=== PATIENT | male | born 1960 | race Caucasian/White ===

== ENCOUNTER 2018-11-20 12:10 | Observation (INO) | payer OTHER ==
[~2018-11-20] VITALS: Ht 180.3 cm; Wt 74.4 kg
[2018-11-20] MEDS ORDERED: METO100T5 PO (12:29)
[2018-11-20] MEDS ORDERED: ASPI-225 PO (12:29)
[2018-11-20] MEDS ORDERED: CLOP75TA2 PO (12:29)
[2018-11-20] MEDS ORDERED: WARF-22 PO (12:29)
[2018-11-20] MEDS ORDERED: RANI150T PO (12:29)
[2018-11-20 12:59] LABS: BASO # 0.2 10^3/uL (0.0-0.2); BASO % 1.1 % (0.0-1.0); EOS # 0.5 10^3/uL (0.0-0.50); EOS % 3.7 % (0.0-3.0); HEMATOCRIT 26.1 % (42.0-52.0); HEMOGLOBIN 7.2 g/dl (13.5-17.5); LYMPH # 1.6 10^3/uL (1.5-4.5); LYMPH % 12.2 % (24.0-44.0); MEAN CORPUSCULAR HEMOGLOBIN 18.8 pg (27.0-33.0); MEAN CORPUSCULAR HGB CONC 27.6 g/dl (32.0-36.5); MONO % 7.3 % (0.0-5.0); NEUTROPHILS # 9.9 10^3/uL (1.8-7.7); NEUTROPHILS % 75.2 % (36.0-66.0); PLATELET COUNT, AUTOMATED 524 10^3/uL (150-450); RED BLOOD COUNT 3.84 10^6/uL (4.30-6.10); WHITE BLOOD COUNT 13.1 10^3/uL (4.0-10.0)
[2018-11-20 13:16] LABS: INR 1.94; PARTIAL THROMBOPLASTIN TIME 35.8 SECONDS (25.4-37.6); PROTHROMBIN TIME 22.5 SECONDS (12.1-14.4)
[2018-11-20 13:25] LABS: BLOOD UREA NITROGEN 9 MG/DL (7-18); CALCIUM LEVEL 8.4 MG/DL (8.5-10.1); CARBON DIOXIDE LEVEL 24 MEQ/L (21-32); CHLORIDE LEVEL 100 MEQ/L (98-107); GLOMERULAR FILTRATION RATE > 60.0 (>56); GLUCOSE, FASTING 79 MG/DL (70-100); POTASSIUM SERUM 4.2 MEQ/L (3.5-5.1); SODIUM LEVEL 133 MEQ/L (136-145)
[2018-11-20 13:57] LABS: FERRITIN 6 NG/ML (26-388); IRON (FE) 13 UG/DL (65-175); PERCENT SATURATION 2.2 % (19.7-50.0); TOTAL IRON BINDING CAPACITY 603 UG/DL (250-450)
--- NOTE | 2018-11-20 14:02 | REP ---
Chest two views HISTORY: Dyspnea Comparison: None The lungs are clear. The heart is normal in size. The pulmonary vasculature is normal in appearance. The bony structure is intact. IMPRESSION: No acute disease. Electronically Signed by Erwin Gold MD 11/20/2018 01:53 P
[2018-11-20] MEDS ORDERED: WARFARIN SOD 5 MG TAB PO ONE (17:00)
--- NOTE | 2018-11-20 17:25 | HPE ---
DATE OF ADMISSION: 11/20/2018 This is a 58-year-old male with a past medical history of peripheral vascular disease, status post bypass surgery in [place] - the exact procedure is unknown at this time, still awaiting old charts, also, a history of hypertension. He presents to the emergency room due to abnormal labs found in urgent care. The patient just came back to [place] and has not had a primary medical doctor yet, although he has an appointment in December to establish a new primary. However, he went to urgent care to get refills of his old prescriptions, and this is where they found out that he had a hemoglobin of 7.2 and a hematocrit of 25, so they brought him to the emergency room (ER) for evaluation. In the ER, the patient only admits to having vertigo, though, that is chronic in nature. No extreme lethargy. No unintentional weight loss. No chest pain or shortness of breath or palpitations. One unit of blood has been given in the ER, and the patient will be admitted for further management. PAST MEDICAL HISTORY: Peripheral vascular disease, status post bypass surgery of which the exact surgery is unknown. We are still awaiting charts from his primary in [place]. History of hypertension. Chronic active tobacco abuser. ALLERGIES: He has drug allergies to ANGIOTENSIN-CONVERTING ENZYME (DYLAN) INHIBITORS and CODEINE. FAMILY HISTORY: Negative for early coronary disease. SOCIAL HISTORY: The patient denies alcohol or illicit drug use, but he does have a 30 pack-year history. He, at this time, only smokes approximately 4-5 cigarettes a week. MEDICATIONS: He takes at home are as follows: - aspirin 81 mg orally daily - Plavix 75 mg orally daily - metoprolol 100 mg orally twice daily - ranitidine 150 mg orally twice daily - warfarin 10 mg orally at bedtime REVIEW OF SYSTEMS: Negative all ten major systems except what is mentioned in the history of the present illness. Vital Signs: Blood pressure is 150/71, heart rate is 60 and regular, respiratory rate 18, temperature 97.6, oxygen saturation 98% on room air. Head is atraumatic, normocephalic. Neck supple. No jugular venous distention (JVD). Lungs are clear to auscultation. S1, S2 audible, No murmurs appreciated. Abdomen: Soft, positive bowel sounds. No pedal edema. Skin: Intact. Neurologic Examination: Patient awake, alert, oriented times three. LABORATORY: Sodium 133, potassium 4.2, chloride 100, CO2 24, BUN 9, creatinine 0.9, glucose 79, calcium 8.4, transferrin saturation is 2%, ferritin is 6. INR is 1.94. IMPRESSION: Subacute anemia. PLAN: The patient is to be admitted to the medical-surgical floor. At this time, will give him only a unit of packed red blood cells (PRBC). Of course, he has lost 5 grams in his hemoglobin in the last 6 months. He is guaiac negative. However, he has never had a colonoscopy. At this time, we will just transfuse him a unit and follow post-transfusion CBC. If everything is stable, will just discharge him and have him followup with gastroenterology as an outpatient for elective colonoscopy to further identify why this patient is iron deficient. In the meantime, I will give him iron supplementation and unfortunately until we find out exactly what the surgical procedure was, he will continue anticoagulation at this time. Will continue following his care on the medical-surgical floor.
[2018-11-20 18:15] VITALS: BP 131/62
[2018-11-20] MEDS: FERROUS SULFATE 325MG TAB PO SCH ×2 (18:56→21:52)
[2018-11-20] MEDS: METOPROLOL TARTRATE 100 MG TAB PO SCH (21:52)
[2018-11-20] MEDS: FAMOTIDINE 20 MG TAB PO SCH (21:53)
[2018-11-20 22:00] VITALS: BP 118/58
[2018-11-21 06:00] VITALS: BP 116/60
[2018-11-21 08:16] LABS: HEMATOCRIT 28.1 % (42.0-52.0); HEMOGLOBIN 8.2 g/dl (13.5-17.5); MEAN CORPUSCULAR HEMOGLOBIN 19.7 pg (27.0-33.0); MEAN CORPUSCULAR HGB CONC 29.2 g/dl (32.0-36.5); MEAN CORPUSCULAR VOLUME 67.5 fl (80.0-96.0); PLATELET COUNT, AUTOMATED 501 10^3/uL (150-450); RED BLOOD COUNT 4.16 10^6/uL (4.30-6.10); WHITE BLOOD COUNT 5.8 10^3/uL (4.0-10.0)
[2018-11-21 08:45] LABS: ALBUMIN 3.5 GM/DL (3.2-5.2); ALT/SGPT 43 U/L (12-78); BILIRUBIN,DIRECT 0.1 MG/DL (0.0-0.2); BILIRUBIN,TOTAL 0.3 MG/DL (0.2-1.0); BLOOD UREA NITROGEN 9 MG/DL (7-18); CALCIUM LEVEL 7.9 MG/DL (8.5-10.1); CARBON DIOXIDE LEVEL 24 MEQ/L (21-32); CHLORIDE LEVEL 105 MEQ/L (98-107); CREATININE FOR GFR 0.81 MG/DL (0.70-1.30); GLOMERULAR FILTRATION RATE > 60.0 (>56); GLUCOSE, FASTING 90 MG/DL (70-100); LDH LACTATE DEHYDROGENASE 179 U/L (87-241); MAGNESIUM LEVEL 1.9 MG/DL (1.8-2.4); POTASSIUM SERUM 4.1 MEQ/L (3.5-5.1); SODIUM LEVEL 136 MEQ/L (136-145); TOTAL PROTEIN 7.7 GM/DL (6.4-8.2)
[2018-11-21] MEDS ORDERED: ASPIRIN 81 MG ENTERIC TAB PO SCH (09:00)
[2018-11-21] MEDS ORDERED: CLOPIDOGREL 75 MG TAB PO SCH (09:00)
[2018-11-21] MEDS: FERROUS SULFATE 325MG TAB PO SCH (09:33)
[2018-11-21] MEDS: FAMOTIDINE 20 MG TAB PO SCH (09:33)
[2018-11-21 09:34] VITALS: BP 155/75
[2018-11-21] MEDS: METOPROLOL TARTRATE 100 MG TAB PO SCH (09:34)
[2018-11-21] MEDS ORDERED: WARFARIN SOD 5 MG TAB PO SCH (17:00)
--- NOTE | 2018-11-21 19:23 | ECGEPIP ---
Stationary ECG Study [facility] - ED Test Date: 2018-11-20 Pat Name: ROMAN ANAYA Department: Room: - Gender: M Management Coordinator: : 1960 Requested By: LAMBERTO Craven Order Number: [id number] Reading MD: Mildred Hendrickson Measurements Intervals [place] Rate: 57 P: 44 IA: 136 QRS: 49 QRSD: 82 T: 45 QT: 426 QTc: 418 Interpretive Statements SINUS BRADYCARDIA NSTTW ABNORMALITY NO PRIOR FOR COMPARISON Electronically Signed On 11-21-2018 19:23:32 EST by Mildred Hendrickson
--- NOTE | 2018-11-21 22:43 | DS.PDOC ---
Discharge Summary General Date of Admission Nov 20, 2018 at 15:52 Date of Discharge left ama 11/21/18 Primary Care Physician: MILLIE EVANS DO Attending Physician: FRANK JAVIER DO Specialist/Consultants Involve: Kenrick Rogel Discharge Summary PROCEDURES PERFORMED DURING STAY: 1U PRBC transfusion ADMITTING DIAGNOSES: 1. acute symptomatic anemia DISCHARGE DIAGNOSES: 1. severe iron deficiency anemia 2. thrombocytosis 3. peripheral vascular disease, s/p bypass & stents, chronically on Coumadin, ASA, and Plavix 4. HTN 5. Chronic active tobacco use COMPLICATIONS/CHIEF COMPLAINT: Acute Anemia. HISTORY OF PRESENT ILLNESS: 58 yo M presented to ER after he was found to have low H&H at urgent care. He recently relocated to [place] from [place], and has not yet established with physician locally. He states he routinely has bloodwork done back in [place] due to his hx of PVD stents in lower legs, and went to urgent care to continue routine bloodwork. In our ER, he was found to have Hgb 7.2. Per reports, he was guaiac-negative in ER. HOSPITAL COURSE: Pt was transfused 1U PRBC and admitted. His Hgb next am mirtha to 8.2. He felt slightly improved in his lightheadedness. He was found to have elevated platelet in 500 range. Peripheral smear was sent, and LDH was WNL. Anemia workup revealed severe iron deficiency at level of 13, and he was started on po iron supplement as well. He was continued on his Coumadin and ASA/Plavix with goal to monitor H&H after he was transfused. He was adamant about leaving AMA, despite being educated about harms, including continuing bleeding, continuing anemia, arrythmia, stroke, and . He left A, and at this time, folate and B12 levels are pending, as well as peripheral smear. DISCHARGE MEDICATIONS: Please see below. ALLERGIES: Please see below. PHYSICAL EXAMINATION ON DISCHARGE: VITAL SIGNS: Please see below. GENERAL: NAD, resting comfortably, A&Ox3 HEENT: NC/AT, EOMI, anicteric sclera, supple. Pale conjunctiva CARDIAC: RRR, normal S1S2, no murmurs LUNGS: CTA B/L. No w/r/r EXTREMITIES: 2+ radial pulses bilaterally. No c/c/e ABDOMEN: soft, NT, +BS LABORATORY DATA: Please see below. IMAGIN11/20/18 CXR: no acute disease PROGNOSIS: fair ACTIVITY: [As tolerated]. DISPOSITION: 07 Against Medical Advice. DISCHARGE CONDITION: [Stable]. TIME SPENT ON DISCHARGE: Greater than 30 minutes. Vital Signs/I&Os Vital Signs Date Time Temp Pulse Resp B/P (MAP) Pulse Ox O2 Delivery O2 Flow Rate FiO2 11/21/18 09:34 68 155/75 11/21/18 06:00 98.3 17 96 11/20/18 12:11 Room Air I&O- Last 24 Hours up to 6 AM 11/21/18 06:00 Intake Total 500 ml Output Total 850 ml Balance -350 ml Laboratory Data Labs 24H Laboratory Tests 2 11/21/18 07:51: Differential Slide Review Report, Peripheral Blood Smear Path Consult PERIPHERAL SMEAR 11/21/18 07:54: Nucleated Red Blood Cells % (auto) 0.0, Anion Gap 7L, Glomerular Filtration Rate > 60.0, Calcium Level 7.9L, Magnesium Level 1.9, Aspartate Amino Transf (AST/SGOT) 34, Alanine Aminotransferase (ALT/SGPT) 43, Lactate Dehydrogenase 179, Alkaline Phosphatase 79, Total Bilirubin 0.3, Direct Bilirubin 0.1, Total Protein 7.7, Albumin 3.5, Albumin/Globulin Ratio 0.83L CBC/BMP Laboratory Tests 11/21/18 07:54 Red Blood Count 4.16 L, Mean Corpuscular Volume 67.5 L, Mean Corpuscular Hemoglobin 19.7 L, Mean Corpuscular Hemoglobin Concent 29.2 L, Red Cell Distribution Width 22.5 H Discharge Medications Scheduled Aspirin (Aspirin Low Dose) 81 Mg Tab, 81 MG PO DAILY, (Reported) Clopidogrel Bisulfate (Clopidogrel) 75 Mg Tab, 75 MG PO DAILY, (Reported) Metoprolol Tartrate (Metoprolol Tartrate) 100 Mg Tab, 100 MG PO BID, (Reported) Ranitidine HCl (Ranitidine HCl) 150 Mg Tab, 1 TAB PO BID, (Reported) Warfarin Sod (Warfarin Sodium) 10 Mg Tab, 10 MG PO QHS, (Reported) Allergies Coded Allergies: DYLAN Inhibitors (Verified Allergy, Unknown, 11/20/18) swelling Codeine (Verified Adverse Reaction, Unknown, 11/20/18) nv GME ATTESTATION GME ATTESTATION My faculty preceptor for this patient encounter was physically present during the encounter and was fully available. All aspects of the patient interview, examination, medical decision making process, and medical care plan development were reviewed and approved by the faculty preceptor. The faculty preceptor is aware and concurs with the plan as stated in the body of this note and will atte st to such by his/her cosignature. OLIVIA COLBERT DO Nov 21, 2018 22:42
[2018-11-23 09:15] LABS: VITAMIN B12 LEVEL 356 PG/ML (247-911)
[2018-11-23 09:16] LABS: FOLATE 17.1 NG/ML (>5.4)
== END 2018-11-21 12:15 | disposition left against medical advice (07) ==
LOC: M ED 12:10 → M ED INP 15:52 → M MSPAV 18:14
PROVIDERS: ADMIT Internal Medicine; ATTEND Internal Medicine
DX: D50.9 Iron deficiency anemia, unspecified (principal); Z53.20 Procedure and treatment not carried out because of patient's decision for unspecified reasons; D47.3 Essential (hemorrhagic) thrombocythemia; I10 Essential (primary) hypertension; I73.9 Peripheral vascular disease, unspecified; Z95.1 Presence of aortocoronary bypass graft; Z79.82 Long term (current) use of aspirin; Z79.01 Long term (current) use of anticoagulants; Z79.899 Other long term (current) drug therapy; Z88.8 Allergy status to other drugs, medicaments and biological substances; F17.210 Nicotine dependence, cigarettes, uncomplicated
CPT/HCPCS: 36415; 36430; 71046; 80048; 80076; 82607; 82728; 82746; 83615; 83735; 84466; 85025; 85027; 85610; 85730; 86850; 86900; 86901; 86920; 93005; 99285; P9016

== ENCOUNTER → 2018-12-17 | Outpatient (REF) | payer OTHER, MEDICAID ==
[~2018-12-17] MED LIST: ASPI-225 PO; CLOP75TA2 PO; METO100T5 PO; RANI150T PO; WARF-22 PO
[2018-12-17 16:13] LABS: HEMATOCRIT 28.5 % (42.0-52.0); HEMOGLOBIN 8.1 g/dl (13.5-17.5); MEAN CORPUSCULAR HEMOGLOBIN 24.9 pg (27.0-33.0); MEAN CORPUSCULAR HGB CONC 28.4 g/dl (32.0-36.5); MEAN CORPUSCULAR VOLUME 87.7 fl (80.0-96.0); PLATELET COUNT, AUTOMATED 457 10^3/uL (150-450); RED BLOOD COUNT 3.25 10^6/uL (4.30-6.10); WHITE BLOOD COUNT 11.9 10^3/uL (4.0-10.0)
[2018-12-17 16:31] LABS: ALBUMIN 3.8 GM/DL (3.2-5.2); ALT/SGPT 71 U/L (12-78); BILIRUBIN,TOTAL 0.3 MG/DL (0.2-1.0); BLOOD UREA NITROGEN 11 MG/DL (7-18); CALCIUM LEVEL 8.2 MG/DL (8.5-10.1); CARBON DIOXIDE LEVEL 27 MEQ/L (21-32); CHLORIDE LEVEL 107 MEQ/L (98-107); CHOLESTEROL LEVEL 151 MG/DL (< 200); CHOLESTEROL LEVEL 151 MG/DL (<200); CREATININE FOR GFR 0.92 MG/DL (0.70-1.30); GLOMERULAR FILTRATION RATE > 60.0 (>56); GLUCOSE, FASTING 85 MG/DL (70-100); HDL CHOLESTEROL 51 MG/DL (> 40); HDL CHOLESTEROL 51 MG/DL (>40); LDL CHOLESTEROL 87 MG/DL (<100); POTASSIUM SERUM 4.6 MEQ/L (3.5-5.1); SODIUM LEVEL 139 MEQ/L (136-145); TOTAL PROTEIN 7.8 GM/DL (6.4-8.2); TRIGLYCERIDES LEVEL 64 MG/DL (<150)
[2018-12-18 12:34] LABS: HEPATITIS C VIRUS ABY INDEX > 11.0 INDEX (<0.8)
== END ==
LOC: M SFHCPLAZ 14:12
DX: Z00.00 Encounter for general adult medical examination without abnormal findings (principal); E78.00 Pure hypercholesterolemia, unspecified; B18.2 Chronic viral hepatitis C; I99.9 Unspecified disorder of circulatory system

== ENCOUNTER → 2019-01-08 | Outpatient (CLI) | payer OTHER ==
--- NOTE | 2019-01-08 10:10 | REP ---
RIGHT UPPER QUADRANT ULTRASOUND: Real-time sonographic evaluation of the right upper quadrant performed. The gallbladder demonstrates on evidence of intraluminal sludge or calculi, wall thickening or pericholecystic fluid. There is no intrahepatic biliary dilatation, common bile duct measuring 4 mm. The liver and pancreas demonstrate homogeneous echotexture with no gross mass, pancreas is not optimally seen due to overlying bowel gas. Right kidney demonstrates no hydronephrosis with normal size 11.2 cm in length. IMPRESSION: Essentially negative right upper quadrant ultrasound. Electronically Signed by Mo Porter MD 01/08/2019 04:14 P
== END ==
LOC: M RAD 07:43
PROVIDERS: ATTEND Internal Medicine
DX: R76.8 Other specified abnormal immunological findings in serum (principal)

== ENCOUNTER → 2019-01-11 | Outpatient (CLI) | payer OTHER ==
[2019-01-12 09:40] LABS: HEPATITIS B SURFACE ANTIBODY NEGATIVE (POSITIVE); HEPATITIS B SURFACE ANTIGEN NEGATIVE (NEGATIVE); HIV 1&2 SCREEN CENTAUR NEGATIVE (NEGATIVE)
[2019-01-14 08:06] LABS: HEPATITIS A IgG TOTAL Negative (Negative)
[2019-01-19 00:06] LABS: HEPATITIS C QUANTITATION 605870 IU/mL (.); HEPATITIS C VIRUS GENOTYPE 2b (.)
== END ==
LOC: M LAB 14:38
PROVIDERS: ATTEND Internal Medicine
DX: R76.8 Other specified abnormal immunological findings in serum (principal)

== ENCOUNTER 2019-02-26 10:47 | Day surgery (SDC) | payer OTHER ==
[~2019-02-26] VITALS: Ht 182.9 cm; Wt 72.0 kg
[~2019-02-26 10:47] MED LIST changes: +ELIQ5TAB PO; +FERR325T3 PO; +METO50TA7 PO; +NS 1,000 ML IV ONE
[2019-02-26] MEDS ORDERED: PROPOFOL 500 MG/50 ML VIAL As Ordered ONE ×2 (12:26→12:39)
[2019-02-26] MEDS ORDERED: LIDOCAINE 2% INJ 100 MG/5 ML SDV (FOR ANES.) As Ordered ONE (12:26)
[2019-02-26] MEDS ORDERED: fentaNYL 100 MCG/2 ML INJECTION (J3010) As Ordered ONE (12:39)
--- NOTE | 2019-02-26 12:47 | ROOR ---
Patient Name: Dio Butler Procedure Date: 02/26/2019 12:15 PM Date of : 1960 Age: 58 Room: [facility] Gender: Male Note Status: Finalized Procedure: Upper GI endoscopy Indications: Iron deficiency anemia Providers: London RAMOS MD Referring MD: KRISTINA MENA Gregory [facility] Leni Requesting Provider: Medicines: Monitored Anesthesia Care Complications: No immediate complications. Procedure: Pre-Anesthesia Assessment: - The heart rate, respiratory rate, oxygen saturations, blood pressure, adequacy of pulmonary ventilation, and response to care were monitored throughout the procedure. The Endoscope was introduced through the mouth, and advanced to the second part of duodenum. The upper GI endoscopy was accomplished without difficulty. The patient tolerated the procedure well. Findings: Moderately severe esophagitis with no bleeding was found in the lower third of the esophagus. Biopsies were taken with a cold forceps for histology. Mild inflammation was found in the gastric antrum. Biopsies were taken with a cold forceps for histology. A single 2 mm angioectasia without bleeding was found in the second portion of the duodenum. For hemostasis, one hemostatic clip was successfully placed (MR conditional). The exam was otherwise without abnormality. Impression: - Moderately severe reflux esophagitis. Biopsied. - Mild gastritis. Biopsied. - A single non-bleeding angioectasia (of dubious significance) in the duodenum. Clip (MR conditional) was placed. - The examination was otherwise normal. Recommendation: - Use Prilosec (omeprazole) 40 mg PO daily. - Discontinue Zantac (ranitidine). - (the script was sent to your pharmacy on file) - Return to referring physician. London Ramos MD London RAMOS MD 02/26/2019 12:46:56 PM Electronically signed by London RAMOS MD Number of Addenda: 0 Note Initiated On: 02/26/2019 12:15 PM Estimated Blood Loss: Estimated blood loss: none.
[2019-02-26] MEDS ORDERED: GLUCAGON FOR INJ 1 MG VIAL (J1610) As Ordered ONE (13:11)
--- NOTE | 2019-02-26 13:20 | ROOR ---
Patient Name: Dio Butler Procedure Date: 02/26/2019 12:17 PM Date of : 1960 Age: 58 Room: [facility] Gender: Male Note Status: Finalized Procedure: Colonoscopy Indications: Iron deficiency anemia Providers: London RAMOS MD Referring MD: KRISTINA MENA Gregory [facility] Leni Requesting Provider: Medicines: Monitored Anesthesia Care Complications: No immediate complications. Procedure: Pre-Anesthesia Assessment: - The heart rate, respiratory rate, oxygen saturations, blood pressure, adequacy of pulmonary ventilation, and response to care were monitored throughout the procedure. The Colonoscope was introduced through the anus and advanced to the cecum, identified by appendiceal orifice and ileocecal valve. The colonoscopy was performed without difficulty. The patient tolerated the procedure well. The quality of the bowel preparation was good. Findings: The perianal and digital rectal examinations were normal. Two sessile polyps were found in the distal sigmoid colon and distal descending colon. The polyps were 6 to 7 mm in size. These polyps were removed with a cold snare. Resection and retrieval were complete. To prevent bleeding after the polypectomy, five hemostatic clips were successfully placed (MR conditional). There was no bleeding at the end of the procedure. Internal hemorrhoids were found during retroflexion. The hemorrhoids were medium-sized. The exam was otherwise without abnormality on direct and retroflexion views. Impression: - Two 6 to 7 mm polyps in the distal sigmoid colon and in the distal descending colon, removed with a cold snare. Resected and retrieved. Clips (MR conditional) were placed. - Internal hemorrhoids. - The examination was otherwise normal on direct and retroflexion views. Recommendation: - Repeat colonoscopy in 5 years for surveillance. - Return to referring physician as previously scheduled. London Ramos MD London RAMOS MD 02/26/2019 1:19:57 PM Electronically signed by London RAMOS MD Number of Addenda: 0 Note Initiated On: 02/26/2019 12:17 PM Estimated Blood Loss: Estimated blood loss: none.
[2019-02-26 13:48] VITALS: BP 157/80
== END 2019-02-26 13:52 | disposition home or self-care (01) ==
LOC: M OPP 10:47
PROVIDERS: ATTEND Internal Medicine Gastroenterology
DX: D12.4 Benign neoplasm of descending colon (principal); K63.5 Polyp of colon; K64.8 Other hemorrhoids; K21.0 Gastro-esophageal reflux disease with esophagitis; K29.70 Gastritis, unspecified, without bleeding; K31.819 Angiodysplasia of stomach and duodenum without bleeding; D50.9 Iron deficiency anemia, unspecified
CPT/HCPCS: 43239; 45385; 88305; J1610; J3010

== ENCOUNTER → 2019-08-09 | Outpatient (REF) | payer MEDICARE ==
[~2019-08-09] MED LIST changes: -NS 1,000 ML IV ONE
[2019-08-09 14:11] LABS: BASO # 0.1 10^3/uL (0.0-0.2); BASO % 1.3 % (0.0-1.0); EOS # 0.5 10^3/uL (0.0-0.5); EOS % 5.4 % (0.0-3.0); HEMATOCRIT 44.6 % (42.0-52.0); LYMPH # 1.9 10^3/uL (1.5-5.0); LYMPH % 22.9 % (24.0-44.0); MEAN CORPUSCULAR HEMOGLOBIN 33.5 pg (27.0-33.0); MEAN CORPUSCULAR HGB CONC 33.6 g/dl (32.0-36.5); MEAN CORPUSCULAR VOLUME 99.6 fl (80.0-96.0); MONO # 0.9 10^3/uL (0.0-0.8); MONO % 10.8 % (0.0-5.0); NEUTROPHILS % 59.1 % (36.0-66.0); PLATELET COUNT, AUTOMATED 238 10^3/uL (150-450); RED BLOOD COUNT 4.48 10^6/uL (4.30-6.10); WHITE BLOOD COUNT 8.5 10^3/uL (4.0-10.0)
[2019-08-09 14:32] LABS: ALBUMIN 3.9 GM/DL (3.2-5.2); BILIRUBIN,DIRECT 0.2 MG/DL (0.0-0.2); BILIRUBIN,TOTAL 0.5 MG/DL (0.2-1.0); TOTAL PROTEIN 8.7 GM/DL (6.4-8.2)
[2019-08-11 14:18] LABS: HEPATITIS C QUANTITATION 70020 IU/mL (.)
== END ==
LOC: M SFHCPLAZ 11:49
PROVIDERS: ATTEND Internal Medicine Infectious Disease
DX: B18.2 Chronic viral hepatitis C (principal); Z23 Encounter for immunization
CPT/HCPCS: 36415; 80076; 85025; 87522; 90471; 90636; G0463

== ENCOUNTER → 2019-10-15 | Outpatient (CLI) | payer MEDICARE ==
[2019-10-15 12:40] LABS: ALBUMIN 4.2 GM/DL (3.2-5.2); BILIRUBIN,DIRECT 0.1 MG/DL (0.0-0.2); BILIRUBIN,TOTAL 0.3 MG/DL (0.2-1.0); TOTAL PROTEIN 8.5 GM/DL (6.4-8.2)
== END ==
LOC: M LAB 11:18
PROVIDERS: ATTEND Internal Medicine Infectious Disease
DX: B18.2 Chronic viral hepatitis C (principal)

== ENCOUNTER → 2019-10-15 | Outpatient (CLI) | payer MEDICARE ==
[~2019-10-15] MED LIST changes: -ASPI-225 PO; +ASPI81TA78 PO
--- NOTE | 2019-10-15 16:28 | REP ---
BILATERAL LOWER EXTREMITY DUPLEX DOPPLER ARTERIAL ULTRASOUND: Real-time ultrasound evaluation and duplex Doppler interrogation of bilateral lower extremity arterial systems is performed. Soft and hard plaque is scattered bilaterally. There is a left axillary to femoral bypass graft. Velocities in the bypass graft are within normal limits ranging from a maximum of 99.7 cm/s at the proximal anastomosis, with lower flow velocities throughout the more distal bypass graft and the next highest velocity 64 cm/s at the anastomosis with the left common femoral artery. Diffuse biphasic wave forms are seen throughout both lower extremities with monophasic reversal of flow in the distal posterior tibial arteries, suggesting a more proximal occlusion of the posterior tibial artery. There is otherwise no evidence of significant stenosis. Peak systolic velocity RIGHT LEFT Femoral artery 215 cm/s 103 cm/s Profunda 111 cm/s 180 cm/s Proximal SFA 126 cm/s 99.5 cm/s Mid-SFA 120 cm/s 76.1 cm/s Distal SFA 101 cm/s 66.8 cm/s Popliteal 114 cm/s 53.7 cm/s Proximal VINNY 48.1 cm/s 24.0 cm/s Tibioperoneal trunk 82.8 cm/s 49.5 cm/s Proximal PRIMER PRESS OPERATOR 33.0 cm/s 52.1 cm/s Distal PRIMER PRESS OPERATOR Reversed 9.0 cm/s 37.3 cm/s Distal VINNY 61.7 cm/s 53.6 cm/s IMPRESSION: Patent left axillary to femoral bypass graft with no stenosis. Scattered soft and hard plaque throughout both lower extremities without hemodynamically significant stenosis, except for probable occlusion of mid to distal right posterior tibial artery with reconstitution of the distal aspect and reversal of flow in the distal aspect. Electronically Signed by Mo Porter MD 10/16/2019 03:24 P
== END ==
LOC: M RAD 11:28
PROVIDERS: ATTEND Physician Assistant
DX: I70.213 Atherosclerosis of native arteries of extremities with intermittent claudication, bilateral legs (principal); Z95.820 Peripheral vascular angioplasty status with implants and grafts; B18.2 Chronic viral hepatitis C

== ENCOUNTER → 2020-03-02 | Outpatient (REF) | payer MEDICARE, MEDICAID ==
[2020-03-02 14:19] LABS: BILIRUBIN,DIRECT 0.2 MG/DL (0.0-0.2); BILIRUBIN,TOTAL 0.6 MG/DL (0.2-1.0); TOTAL PROTEIN 8.3 GM/DL (6.4-8.2)
[2020-03-06 08:26] LABS: HEPATITIS C QUANTITATION HCV Not Detected IU/mL (.)
== END ==
LOC: M PLALAB 11:30
PROVIDERS: ATTEND Internal Medicine Infectious Disease
DX: B18.2 Chronic viral hepatitis C (principal)

== ENCOUNTER → 2020-05-30 | Outpatient (CLI) | payer MEDICARE, MEDICAID ==
[2020-05-30 23:00] LABS: BILIRUBIN,DIRECT 0.2 MG/DL (0.0-0.2); BILIRUBIN,TOTAL 0.7 MG/DL (0.2-1.0); CHOLESTEROL RISK RATIO 1.707 (<5); TOTAL PROTEIN 8.3 GM/DL (6.4-8.2)
[2020-06-01 23:07] LABS: HEPATITIS C QUANTITATION HCV Not Detected IU/mL (.)
== END ==
LOC: M PLALAB 10:06
PROVIDERS: ATTEND Internal Medicine Infectious Disease
DX: E78.00 Pure hypercholesterolemia, unspecified (principal); B18.2 Chronic viral hepatitis C

== ENCOUNTER → 2020-07-11 | Outpatient (CLI) | payer MEDICAID, MEDICARE ==
--- NOTE | 2020-07-17 14:59 | REP ---
BILATERAL LOWER EXTREMITY DUPLEX DOPPLER ARTERIAL ULTRASOUND HISTORY: Atherosclerosis, intermittent claudication left axillary to femoral bypass graft. TECHNIQUE: Real-time ultrasound evaluation and duplex Doppler interrogation of bilateral lower extremity arterial systems is performed. FINDINGS: There is [id number] diffuse plaquing again seen bilaterally. Ankle brachial indices (JANNET) right is 1.1 and left 1.0. Left axillary to femoral bypass graft is patent with normal flow velocities unchanged since prior exam of 10/15/2019. There is again reversal of flow in the distal posterior tibial artery on the right compatible with occlusion of the mid aspect of that artery. There is elevated peak systolic velocity of the proximal left superficial femoral artery suggesting mild stenosis. Diffuse biphasic waveforms are seen bilaterally except for monophasic waveform in the left profunda. The peak systolic velocity in the left axillary artery at the anastomosis is 81.8 cm/s, in the patent bypass graft peak systolic velocities range between 47.3 and 56.3 cm/s. At the left common femoral anastomosis, peak systolic velocity is 62.6 cm/s. BILATERAL LOWER EXTREMITY VELOCITY CHART PSV RIGHT (cm/s) PSV LEFT (cm/s) Common femoral artery 178.8 54.2 Profunda 111.8 40.0 Proximal SFA 120.6 154.6 Mid SFA 97.5 75.8 Distal SFA 130.6 48.6 Popliteal 92.0 87.4 Proximal VINNY 62.9 55.5 Tibioperoneal trunk 129.7 46.9 Proximal GRADES 1 THRU 6 HOME TEACHER 66.3 33.5 Distal GRADES 1 THRU 6 HOME TEACHER Reversed, 17.0 16.6 Distal VINNY 39.8 34.7 MTDD
== END ==
LOC: M RAD 06:53
PROVIDERS: ATTEND Physician Assistant
DX: I70.213 Atherosclerosis of native arteries of extremities with intermittent claudication, bilateral legs (principal)

== ENCOUNTER → 2020-07-25 | Outpatient (REF) | payer MEDICARE, MEDICAID ==
[2020-07-25 13:58] LABS: BLOOD UREA NITROGEN 4 MG/DL (7-18); CALCIUM LEVEL 9.1 MG/DL (8.8-10.2); CARBON DIOXIDE LEVEL 27 MEQ/L (21-32); CHLORIDE LEVEL 97 MEQ/L (98-107); CREATININE FOR GFR 0.82 MG/DL (0.70-1.30); GLOMERULAR FILTRATION RATE > 60.0 (>49); GLUCOSE, FASTING 99 MG/DL (70-100); POTASSIUM SERUM 4.4 MEQ/L (3.5-5.1); SODIUM LEVEL 129 MEQ/L (136-145)
== END ==
LOC: M SFHCPLAZ 10:57
DX: I10 Essential (primary) hypertension (principal)

== ENCOUNTER → 2020-07-25 | Outpatient (CLI) | payer MEDICAID, MEDICARE ==
--- NOTE | 2020-07-25 10:57 | REP ---
INDICATION: TOBACCO DEPENDENCE, LUNG CANCER SCREENING COMPARISON: None. TECHNIQUE: Axial noncontrast images from the thoracic inlet to the upper abdomen using low-dose lung screening technique (LDCT). FINDINGS: Lung phipps are well aerated and clear. No consolidation, effusion, or pneumothorax. No suspicious nodule or mass lesion identified. Tracheobronchial tree is patent. Atherosclerotic changes to the thoracic aorta and coronary arteries noted. IMPRESSION: Lung rads category 1. No suspicious nodule identified. Management recommendations include annual low-dose surveillance. <Electronically signed by Dio Welsh > 07/25/20 105
== END ==
LOC: M RAD 10:29
PROVIDERS: ATTEND Internal Medicine
DX: Z12.2 Encounter for screening for malignant neoplasm of respiratory organs (principal); F17.210 Nicotine dependence, cigarettes, uncomplicated; I10 Essential (primary) hypertension
CPT/HCPCS: 36415; 80048; G0297

== ENCOUNTER → 2021-01-05 | Outpatient (CLI) | payer MEDICAID, MEDICARE ==
[~2021-01-05] MED LIST changes: +ARNU50IN INH; +ATOR1TAB21 PO; +LOSA50TA88 PO; +OMEP-218 PO
--- NOTE | 2021-01-05 11:20 | REP ---
INDICATION: CAROTID STENOSIS H/O CEA COMPARISON: None. TECHNIQUE: Real-time ultrasound evaluation and duplex Doppler interrogation of the extracranial carotid vasculature is performed. FINDINGS: There is some plaquing and narrowing in both distal common carotids and the carotid bulbs extending into the internal and external carotid arteries. Luminal narrowing is less than 50% the right in the range of 50-69% on the left. There is no evidence of hemodynamically significant stenosis of the right internal carotid artery. Some of the plaque has calcification with shadowing. Normal flow velocities on the right are seen. The left internal carotid does show elevated velocity suggesting hemodynamically significant flow restriction. There is more extensive calcific plaque at the bulb and proximal ICA with shadowing. The vertebral arteries demonstrate normal direction of flow. RIGHT LEFT Peak systolic velocity ICA 118 cm/s 150 cm/s End diastolic velocity ICA 33 cm/s 44 cm/s Peak systolic velocity CCA 85 cm/s 105cm/s Peak systolic velocity ECA 139 cm/s 123 cm/s ICA/CCA ratio 1.38 1.42 IMPRESSION: Right internal carotid luminal narrowing less than 50%. No evidence of hemodynamically significant stenosis. Left internal carotid luminal narrowing 50-69%. This is considered hemodynamically significant and flow restricting but is not critical. Calcific plaque at the bulb and proximally ICA with shadowing. Cranial direction of flow in the vertebral arteries. <Electronically signed by Rome Suarez > 01/05/21 [id number]
--- NOTE | 2021-01-05 11:39 | REP ---
INDICATION: INTERMITTENT CLAUDICATION, ATHEROSCLEROTIC DISEASE BOTH LOWER EXTREMITIES; CAROTID STENOSIS H/O CEA. COMPARISON: 07/11/2020 TECHNIQUE: Standard arterial duplex techniques for both lower extremities along with JANNET measurements and evaluation of a left axillary femoral bypass graft as before. FINDINGS: JANNET: Right: Brachial 140, dorsalis pedis 135, DATA REDUCTION TECHNICIAN 120 (reversal of flow). JANNET = 0.9 Left: Brachial 140, dorsalis pedis 135, DATA REDUCTION TECHNICIAN 126. JANNET = 0.9 Lower extremity arterial Doppler: RIGHT: PSV in cm/s/Phasicity OR FIRST ASSIST REGISTERED NURSE: 185/biphasic Profunda: 185/biphasic SFA prox: 129/biphasic SFA mid: 119/biphasic SFA dist: 120/biphasic Pop: 130/biphasic VINNY prox: 81/biphasic TP trunk: 117/biphasic DATA REDUCTION TECHNICIAN prox: 61/biphasic DATA REDUCTION TECHNICIAN dist:-33/biphasic (reversal of flow) VINNY dist: 94/triphasic LEFT: PSV in cm/s/Phasicity OR FIRST ASSIST REGISTERED NURSE: 96/biphasic (distal to anastomosis) Profundal: 113/biphasic SFA prox: 160/biphasic SFA mid: 116/biphasic SFA distal: 109/biphasic Pop: 77/biphasic VINNY prox: 66/biphasic TP trunk: 102/biphasic DATA REDUCTION TECHNICIAN prox: 64/biphasic DATA REDUCTION TECHNICIAN dist: 21/biphasic VINNY dist: 61/biphasic. LEFT AX/FEM BYPASS GRAFT: PSV in cm/s/phasicity Ax anas: 172/biphasic Prox chest: 66.3/biphasic Mid abd: 72.7/biphasic Distal abd: 72.2/biphasic Iliac crest: 66.3/biphasic OR FIRST ASSIST REGISTERED NURSE anas: 103/biphasic Again noted are calcifications a moderate to severe plaquing bilaterally. There is again noted to be reversal of flow in the right DATA REDUCTION TECHNICIAN. Left axillary femoral bypass graft remains patent IMPRESSION: 1. Bilateral lower extremity atherosclerotic plaque with continued reversal of flow in the right DATA REDUCTION TECHNICIAN distally. 2. Patent left axillary femoral graft. No significant interval change. <Electronically signed by Rome Suarez > 01/05/21 [id number]
== END ==
LOC: M RAD 09:25
PROVIDERS: ATTEND Physician Assistant
DX: I70.213 Atherosclerosis of native arteries of extremities with intermittent claudication, bilateral legs (principal); I65.23 Occlusion and stenosis of bilateral carotid arteries

== ENCOUNTER 2021-01-07 12:15 | Emergency (ER) | payer MEDICARE ==
[~2021-01-07] VITALS: Ht 180.3 cm; Wt 70.5 kg
[~2021-01-07 12:15] MED LIST changes: -ARNU50IN INH; -ATOR1TAB21 PO; -LOSA50TA88 PO; -OMEP-218 PO
[2021-01-07] MEDS ORDERED: ATOR1TAB21 PO (12:26)
[2021-01-07] MEDS ORDERED: ARNU50IN INH (12:26)
[2021-01-07] MEDS ORDERED: LOSA50TA88 PO (12:26)
[2021-01-07] MEDS ORDERED: OMEP-218 PO (12:26)
[2021-01-07] MEDS ORDERED: MECLIZINE 25 MG TABLET PO ONE (12:45)
[2021-01-07 12:58] LABS: BASO # 0.1 10^3/uL (0.0-0.2); EOS % 0.3 % (0.0-3.0); HEMATOCRIT 37.6 % (42.0-52.0); HEMOGLOBIN 13.1 g/dl (13.5-17.5); LYMPH # 0.6 10^3/uL (1.5-5.0); LYMPH % 8.5 % (24.0-44.0); MEAN CORPUSCULAR HEMOGLOBIN 34.8 pg (27.0-33.0); MEAN CORPUSCULAR HGB CONC 34.8 g/dl (32.0-36.5); MONO # 0.3 10^3/uL (0.0-0.8); MONO % 4.1 % (2.0-8.0); NEUTROPHILS # 5.9 10^3/uL (1.5-8.5); NEUTROPHILS % 85.7 % (36.0-66.0); PLATELET COUNT, AUTOMATED 143 10^3/uL (150-450); RED BLOOD COUNT 3.76 10^6/uL (4.30-6.10); WHITE BLOOD COUNT 6.9 10^3/uL (4.0-10.0)
--- NOTE | 2021-01-07 13:05 | REPVR ---
PROCEDURE INFORMATION: Exam: CT Head Without Contrast Exam date and time: 01/07/2021 12:54 PM Age: 60 years old Clinical indication: Syncope and collapse TECHNIQUE: Imaging protocol: Computed tomography of the head without contrast. Radiation optimization: All CT scans at this facility use at least one of these dose optimization techniques: automated exposure control; mA and/or kV adjustment per patient size (includes targeted exams where dose is matched to clinical indication); or iterative reconstruction. COMPARISON: No relevant prior studies available. FINDINGS: Brain: Mild hypoattenuating foci are noted in the anterior lateral ventricular periventricular white matter bilaterally. No intracranial hemorrhage. No mass or acute cortical infarction identified. Cerebral ventricles: Prominence of the d subarachnoid spaces is consistent with the patient's age of 60 years. Disproportionate enlargement of the lateral ventricles is present with an Mcclellan ratio of 38.8%. The anterior third ventricular transverse dimension is 10.9 mm. The fourth ventricle is normal in size. Bones/joints: No acute abnormality. No acute fracture. Paranasal sinuses: Visualized sinuses are unremarkable. No fluid levels. Mastoid air cells: Visualized mastoid air cells are well aerated. Vasculature: Atherosclerotic calcifications are present involving the carotid artery siphons bilaterally. Soft tissues: Unremarkable. IMPRESSION: 1. Disproportionate prominence of the lateral and third ventricles. Recommend clinical exclusion of symptoms of normal pressure hydrocephalus. Otherwise, age appropriate supratentorial and infratentorial atrophy. 2. Mild chronic white matter microvascular ischemic disease. 3. No acute intracranial abnormality identified. Electronically signed by: Robinson Richards On 01/07/2021 13:05:38 PM
[2021-01-07 13:08] LABS: INR 1.04; PROTHROMBIN TIME 13.8 SECONDS (12.5-14.3)
--- NOTE | 2021-01-07 13:25 | REP ---
INDICATION: Syncope/near-syncope. COMPARISON: PA and lateral chest dated 11/20/2018 TECHNIQUE: Portable AP chest with the patient upright. FINDINGS: The lung phipps are clear. Cardiac size is normal. The brandie, mediastinum and skeletal structures are unremarkable. IMPRESSION: Essentially negative portable chest <Electronically signed by Mo Mueller > 01/07/21 [id number]
[2021-01-07 13:30] LABS: BLOOD UREA NITROGEN 5 MG/DL (7-18); CARBON DIOXIDE LEVEL 26 MEQ/L (21-32); CHLORIDE LEVEL 93 MEQ/L (98-107); CK-MB VALUE MASS 1.8 NG/ML (<3.6); CPK CREATINE PHOSPHOKINASE 121 U/L (39-308); CREATININE FOR GFR 0.84 MG/DL (0.70-1.30); ETHYL ALCOHOL (ETHANOL) 0.005 % (0.000-0.010); GLOMERULAR FILTRATION RATE > 60.0 (>49); GLUCOSE, FASTING 122 MG/DL (70-100); MAGNESIUM LEVEL 0.7 MG/DL (1.8-2.4); MB/CK RELATIVE INDEX 1.49 (< OR =4); POTASSIUM SERUM 3.7 MEQ/L (3.5-5.1); SODIUM LEVEL 126 MEQ/L (136-145); TROPONIN I < 0.02 NG/ML (< 0.10)
[2021-01-07] MEDS ORDERED: MAG SULF 1GM/100ML (MAG RUN) 1 GM in IV 1 EA IV ONE (13:50)
[2021-01-07] MEDS ORDERED: METOCLOPRAMIDE INJ 10MG/2ML VIAL (J2765 PER 1) IV ONE (13:55)
[2021-01-07] MEDS ORDERED: LORazepam 2 MG/ML VIAL IV STA (14:00)
[2021-01-07] MEDS ORDERED: LORazepam 2 MG/ML VIAL As Ordered ONE (14:05)
[2021-01-07 15:34] LABS: RSV AMPLIFICATION NEGATIVE (NEGATIVE)
[2021-01-07 17:28] LABS: AMPHETAMINES LEVEL URINE NEGATIVE (NEGATIVE); BARBITURATES URINE NEGATIVE (NEGATIVE); BENZODIAZEPINES URINE NEGATIVE (NEGATIVE); CANNABINOIDS URINE POSITIVE (NEGATIVE); COCAINE METABOLITE URINE NEGATIVE (NEGATIVE); METHADONE URINE NEGATIVE (NEGATIVE); OPIATES URINE NEGATIVE (NEGATIVE); PHENCYCLIDINE URINE NEGATIVE (NEGATIVE)
[2021-01-07 18:30] VITALS: BP 180/93
--- NOTE | 2021-01-07 19:29 | ECGEPIP ---
[facility] - ED Test Date: 2021-01-07 Pat Name: ROMAN ANAYA Department: Room: - Gender: Male Household Appliances Salesperson: PAULINE : 1960 Requested By: JONATHAN HENDRICKS Order Number: [id number] Reading MD: Cullen Felipe Measurements Intervals [place] Rate: 75 P: 63 [place]: 146 QRS: 59 QRSD: 70 T: 48 QT: 402 QTc: 448 Interpretive Statements Normal sinus rhythm Nonspecific ST T wave changes cw 11/20/[address] T wave changes Electronically Signed on 01-07-2021 19:29:37 EDT by Cullen Felipe
== END 2021-01-07 18:44 | disposition short-term general hospital (02) ==
LOC: M ED 12:15
DX: E87.1 Hypo-osmolality and hyponatremia (principal); G91.9 Hydrocephalus, unspecified; I51.9 Heart disease, unspecified; I10 Essential (primary) hypertension; E78.5 Hyperlipidemia, unspecified; F17.200 Nicotine dependence, unspecified, uncomplicated; Z79.82 Long term (current) use of aspirin; Z79.01 Long term (current) use of anticoagulants; Z79.899 Other long term (current) drug therapy; Z91.89 Other specified personal risk factors, not elsewhere classified; Z88.5 Allergy status to narcotic agent
CPT/HCPCS: 70450; 71045; 80048; 80307; 82077; 82550; 82553; 83735; 84443; 84484; 85025; 85610; 87631; 93005; 93041; 94760; 96365; 96375; 99285; J2060; J2765; J3475

== ENCOUNTER → 2021-01-17 | Outpatient (REF) | payer MEDICARE ==
[~2021-01-17] MED LIST changes: +ARNU50IN INH; +ATOR1TAB21 PO; +LOSA50TA88 PO; +OMEP-218 PO
[2021-01-17 14:27] LABS: ALT/SGPT 55 U/L (12-78); BILIRUBIN,TOTAL 0.3 MG/DL (0.2-1.0); BLOOD UREA NITROGEN 7 MG/DL (7-18); CALCIUM LEVEL 9.7 MG/DL (8.8-10.2); CARBON DIOXIDE LEVEL 27 MEQ/L (21-32); CHLORIDE LEVEL 100 MEQ/L (98-107); CREATININE FOR GFR 0.82 MG/DL (0.70-1.30); GLOMERULAR FILTRATION RATE > 60.0 (>49); GLUCOSE, FASTING 89 MG/DL (70-100); POTASSIUM SERUM 5.3 MEQ/L (3.5-5.1); SODIUM LEVEL 134 MEQ/L (136-145); TOTAL PROTEIN 7.9 GM/DL (6.4-8.2)
== END ==
LOC: M SFHCPLAZ 08:58
PROVIDERS: ATTEND Family Medicine
DX: E87.1 Hypo-osmolality and hyponatremia (principal)
CPT/HCPCS: 36415; 80053; G0463

== ENCOUNTER → 2021-02-23 | Outpatient (REF) | payer MEDICARE ==
[2021-02-23 15:27] LABS: BASO # 0.1 10^3/uL (0.0-0.2); BASO % 0.5 % (0.0-1.0); EOS % 0.2 % (0.0-3.0); HEMATOCRIT 39.3 % (42.0-52.0); HEMOGLOBIN 13.6 g/dl (13.5-17.5); LYMPH # 2.4 10^3/uL (1.5-5.0); LYMPH % 12.4 % (24.0-44.0); MEAN CORPUSCULAR HEMOGLOBIN 35.1 pg (27.0-33.0); MEAN CORPUSCULAR HGB CONC 34.6 g/dl (32.0-36.5); MEAN CORPUSCULAR VOLUME 101.3 fl (80.0-96.0); MONO # 1.7 10^3/uL (0.0-0.8); MONO % 8.7 % (2.0-8.0); NEUTROPHILS % 77.4 % (36.0-66.0); PLATELET COUNT, AUTOMATED 311 10^3/uL (150-450); RED BLOOD COUNT 3.88 10^6/uL (4.30-6.10)
[2021-02-23 15:50] LABS: WHITE BLOOD COUNT 19.4 10^3/uL (4.0-10.0)
[2021-02-23 15:56] LABS: ALBUMIN 4.3 GM/DL (3.2-5.2); ALT/SGPT 21 U/L (12-78); BILIRUBIN,TOTAL 1.3 MG/DL (0.2-1.0); BLOOD UREA NITROGEN 8 MG/DL (7-18); CALCIUM LEVEL 9.2 MG/DL (8.8-10.2); CARBON DIOXIDE LEVEL 25 MEQ/L (21-32); CHLORIDE LEVEL 95 MEQ/L (98-107); CREATININE FOR GFR 0.78 MG/DL (0.70-1.30); GLOMERULAR FILTRATION RATE > 60.0 (>49); GLUCOSE, FASTING 77 MG/DL (70-100); POTASSIUM SERUM 4.3 MEQ/L (3.5-5.1); SODIUM LEVEL 131 MEQ/L (136-145); TOTAL PROTEIN 8.2 GM/DL (6.4-8.2)
== END ==
LOC: M SFHCPLAZ 14:20
DX: R19.7 Diarrhea, unspecified (principal)
CPT/HCPCS: 36415; 80053; 85025; 87426; 87804; G0463

== ENCOUNTER → 2021-02-26 | Outpatient (REF) | payer MEDICARE | LOC: M SFHCPLAZ 15:58 | PROVIDERS: ATTEND Family Medicine | DX: R19.7 Diarrhea, unspecified (principal) ==

== ENCOUNTER → 2021-02-27 | Outpatient (REF) | payer MEDICARE ==
[2021-02-27 15:41] LABS: BASO # 0.1 10^3/uL (0.0-0.2); BASO % 0.6 % (0.0-1.0); EOS # 0.2 10^3/uL (0.0-0.5); EOS % 1.5 % (0.0-3.0); HEMATOCRIT 34.9 % (42.0-52.0); HEMOGLOBIN 12.2 g/dl (13.5-17.5); LYMPH # 2.4 10^3/uL (1.5-5.0); MEAN CORPUSCULAR HEMOGLOBIN 34.6 pg (27.0-33.0); MEAN CORPUSCULAR VOLUME 98.9 fl (80.0-96.0); MONO # 1.3 10^3/uL (0.0-0.8); MONO % 11.8 % (2.0-8.0); NEUTROPHILS # 6.8 10^3/uL (1.5-8.5); NEUTROPHILS % 63.5 % (36.0-66.0); PLATELET COUNT, AUTOMATED 245 10^3/uL (150-450); RED BLOOD COUNT 3.53 10^6/uL (4.30-6.10); WHITE BLOOD COUNT 10.8 10^3/uL (4.0-10.0)
[2021-02-27 15:59] LABS: ALT/SGPT 20 U/L (12-78); BILIRUBIN,TOTAL 0.9 MG/DL (0.2-1.0); BLOOD UREA NITROGEN 9 MG/DL (7-18); CALCIUM LEVEL 9.5 MG/DL (8.8-10.2); CARBON DIOXIDE LEVEL 23 MEQ/L (21-32); CHLORIDE LEVEL 91 MEQ/L (98-107); CREATININE FOR GFR 0.91 MG/DL (0.70-1.30); GLOMERULAR FILTRATION RATE > 60.0 (>49); GLUCOSE, FASTING 76 MG/DL (70-100); SODIUM LEVEL 126 MEQ/L (136-145); TOTAL PROTEIN 7.8 GM/DL (6.4-8.2)
== END ==
LOC: M SFHCPLAZ 14:12
PROVIDERS: ATTEND Family Medicine
DX: R19.7 Diarrhea, unspecified (principal)

== ENCOUNTER → 2021-10-04 | Outpatient (REF) | payer MEDICARE | LOC: M SFHCPLAZ 14:00 | PROVIDERS: ATTEND Family Medicine | DX: I65.21 Occlusion and stenosis of right carotid artery (principal); Z86.2 Personal history of diseases of the blood and blood-forming organs and certain disorders involving the immune mechanism; Z86.19 Personal history of other infectious and parasitic diseases ==

== ENCOUNTER → 2021-10-04 | Outpatient (CLI) | payer MEDICARE ==
[2021-10-04 17:57] LABS: BASO # 0.1 10^3/uL (0.0-0.2); BASO % 1.1 % (0.0-1.0); EOS # 0.1 10^3/uL (0.0-0.5); EOS % 0.6 % (0.0-3.0); HEMATOCRIT 38.7 % (42.0-52.0); HEMOGLOBIN 13.3 g/dl (13.5-17.5); LYMPH # 2.5 10^3/uL (1.5-5.0); LYMPH % 23.4 % (24.0-44.0); MEAN CORPUSCULAR HEMOGLOBIN 32.8 pg (27.0-33.0); MEAN CORPUSCULAR HGB CONC 34.4 g/dl (32.0-36.5); MEAN CORPUSCULAR VOLUME 95.3 fl (80.0-96.0); MONO # 0.9 10^3/uL (0.0-0.8); MONO % 8.9 % (2.0-8.0); NEUTROPHILS # 6.9 10^3/uL (1.5-8.5); NEUTROPHILS % 65.7 % (36.0-66.0); PLATELET COUNT, AUTOMATED 288 10^3/uL (150-450); RED BLOOD COUNT 4.06 10^6/uL (4.30-6.10); WHITE BLOOD COUNT 10.5 10^3/uL (4.0-10.0)
[2021-10-04 18:05] LABS: ALBUMIN 4.1 GM/DL (3.2-5.2); BILIRUBIN,TOTAL 0.9 MG/DL (0.2-1.0); CHOLESTEROL RISK RATIO 2.433 (<5); CREATININE FOR GFR 1.45 MG/DL (0.70-1.30); GLOMERULAR FILTRATION RATE 52.7 (>49); POTASSIUM SERUM 3.9 MEQ/L (3.5-5.1); TOTAL PROTEIN 8.3 GM/DL (6.4-8.2)
== END ==
LOC: M PLALAB 14:11
PROVIDERS: ATTEND Student in an Organized Health Care Education/Training Program
DX: I65.21 Occlusion and stenosis of right carotid artery (principal); Z86.2 Personal history of diseases of the blood and blood-forming organs and certain disorders involving the immune mechanism; Z86.19 Personal history of other infectious and parasitic diseases

== ENCOUNTER → 2021-11-22 | Outpatient (CLI) | payer MEDICARE ==
[~2021-11-22] MED LIST changes: +LOSA50TA28 PO; -LOSA50TA88 PO; +OMEP-173 PO; -OMEP-218 PO
== END ==
LOC: M RAD 08:21
PROVIDERS: ATTEND Student in an Organized Health Care Education/Training Program
DX: Z12.2 Encounter for screening for malignant neoplasm of respiratory organs (principal)

== ENCOUNTER → 2022-01-30 | Outpatient (CLI) | payer MEDICARE | LOC: M CARPUL 09:41 | PROVIDERS: ATTEND Student in an Organized Health Care Education/Training Program | DX: J44.9 Chronic obstructive pulmonary disease, unspecified (principal) ==

== ENCOUNTER → 2022-02-14 | Outpatient (CLI) | payer MEDICARE | LOC: M RAD 09:49 | PROVIDERS: ATTEND Student in an Organized Health Care Education/Training Program | DX: Z00.00 Encounter for general adult medical examination without abnormal findings (principal) ==

== ENCOUNTER → 2022-02-14 | Outpatient (CLI) | payer MEDICARE ==
[2022-02-14 13:37] LABS: BASO # 0.1 10^3/uL (0.0-0.2); BASO % 1.3 % (0.0-1.0); EOS # 0.1 10^3/uL (0.0-0.5); EOS % 1.6 % (0.0-3.0); HEMATOCRIT 33.3 % (42.0-52.0); HEMOGLOBIN 11.7 g/dl (13.5-17.5); LYMPH # 2.1 10^3/uL (1.5-5.0); LYMPH % 27.6 % (24.0-44.0); MEAN CORPUSCULAR HEMOGLOBIN 35.5 pg (27.0-33.0); MEAN CORPUSCULAR HGB CONC 35.1 g/dl (32.0-36.5); MEAN CORPUSCULAR VOLUME 100.9 fl (80.0-96.0); MONO # 0.6 10^3/uL (0.0-0.8); MONO % 8.4 % (2.0-8.0); NEUTROPHILS # 4.6 10^3/uL (1.5-8.5); NEUTROPHILS % 60.7 % (36.0-66.0); PLATELET COUNT, AUTOMATED 202 10^3/uL (150-450); WHITE BLOOD COUNT 7.6 10^3/uL (4.0-10.0)
[2022-02-14 14:00] LABS: CREATININE,RANDOM URINE 57.6 MG/DL
[2022-02-14 14:19] LABS: ALBUMIN 3.4 GM/DL (3.2-5.2); BILIRUBIN,TOTAL 0.9 MG/DL (0.2-1.0); CALCIUM LEVEL 8.4 MG/DL (8.8-10.2); CREATININE FOR GFR 1.42 MG/DL (0.70-1.30); GLOMERULAR FILTRATION RATE 53.8 (>49); PERCENT SATURATION 78.3 % (19.7-50.0); POTASSIUM SERUM 4.1 MEQ/L (3.5-5.1); TOTAL PROTEIN 7.3 GM/DL (6.4-8.2)
[2022-02-22 14:04] LABS: FOLATE 11.5 NG/ML
== END ==
LOC: M PLALAB 11:08
PROVIDERS: ATTEND Student in an Organized Health Care Education/Training Program
DX: Z00.00 Encounter for general adult medical examination without abnormal findings (principal); D64.9 Anemia, unspecified; E87.1 Hypo-osmolality and hyponatremia

== ENCOUNTER → 2022-03-15 | Outpatient (CLI) | payer MEDICARE | LOC: M PLALAB 09:15 | PROVIDERS: ATTEND Student in an Organized Health Care Education/Training Program | DX: R79.89 Other specified abnormal findings of blood chemistry (principal) ==

== ENCOUNTER → 2022-08-13 | Outpatient (CLI) | payer MEDICAID, MEDICARE | LOC: M RAD 10:03 | PROVIDERS: ATTEND Surgery Vascular Surgery | DX: I65.23 Occlusion and stenosis of bilateral carotid arteries (principal); Z98.62 Peripheral vascular angioplasty status; I73.9 Peripheral vascular disease, unspecified ==

== ENCOUNTER → 2022-09-11 | Outpatient (REF) | payer MEDICARE ==
[2022-09-11 14:07] LABS: HEMATOCRIT 35.2 % (42.0-52.0); HEMOGLOBIN 11.5 g/dl (13.5-17.5); MEAN CORPUSCULAR HGB CONC 32.7 g/dl (32.0-36.5); MEAN CORPUSCULAR VOLUME 100.9 fl (80.0-96.0); PLATELET COUNT, AUTOMATED 300 10^3/uL (150-450); RED BLOOD COUNT 3.49 10^6/uL (4.30-6.10); WHITE BLOOD COUNT 8.3 10^3/uL (4.0-10.0)
[2022-09-11 14:36] LABS: ALBUMIN 3.6 G/DL (3.2-5.2); BILIRUBIN,TOTAL 0.2 MG/DL (0.3-1.2); CALCIUM LEVEL 8.8 MG/DL (8.3-10.6); CHOLESTEROL RISK RATIO 1.7 (<5); CREATININE FOR GFR 1.44 MG/DL (0.70-1.30); GLOMERULAR FILTRATION RATE 52.9 (>49); HDL CHOLESTEROL 74.1 MG/DL (>40); LDL CHOLESTEROL 40.5 MG/DL (<100); POTASSIUM SERUM 4.7 MMOL/L (3.5-5.1); TOTAL PROTEIN 7.1 G/DL (5.7-8.2)
[2022-09-11 14:40] LABS: THYROID STIMULATING HORMONE 1.929 uIU/ML (0.55-4.78)
[2022-09-11 14:42] LABS: FREE T4 0.69 NG/DL (0.89-1.76)
[2022-09-11 15:14] LABS: HEMOGLOBIN A1c 4.7 % (4.0-6.0)
== END ==
LOC: M SFHCADAM 08:59
PROVIDERS: ATTEND Family Medicine
DX: E78.00 Pure hypercholesterolemia, unspecified (principal); I10 Essential (primary) hypertension; I48.91 Unspecified atrial fibrillation; Z12.5 Encounter for screening for malignant neoplasm of prostate; Z13.1 Encounter for screening for diabetes mellitus; Z79.899 Other long term (current) drug therapy
CPT/HCPCS: 80053; 80061; 83036; 84439; 84443; 85027; G0103

== ENCOUNTER → 2023-01-16 | Outpatient (CLI) | payer MEDICARE | LOC: M RAD 09:04 | PROVIDERS: ATTEND Family Medicine | DX: Z12.2 Encounter for screening for malignant neoplasm of respiratory organs (principal); F17.210 Nicotine dependence, cigarettes, uncomplicated; J84.10 Pulmonary fibrosis, unspecified ==

== ENCOUNTER → 2023-07-25 | Outpatient (REF) | payer MEDICARE, MEDICAID | LOC: M SFHCDERM 17:49 | PROVIDERS: ATTEND Nurse Practitioner Family | DX: L85.9 Epidermal thickening, unspecified (principal) ==

== ENCOUNTER → 2023-07-25 | Outpatient (REF) | payer MEDICARE, MEDICAID ==
[2023-07-25 13:39] LABS: BASO # 0.1 10^3/uL (0.0-0.2); BASO % 1.6 % (0.0-1.0); EOS # 0.2 10^3/uL (0.0-0.5); EOS % 2.5 % (0.0-3.0); HEMATOCRIT 35.8 % (42.0-52.0); HEMOGLOBIN 12.3 g/dl (13.5-17.5); LYMPH # 1.5 10^3/uL (1.5-5.0); LYMPH % 22.2 % (24.0-44.0); MEAN CORPUSCULAR HEMOGLOBIN 32.8 pg (27.0-33.0); MEAN CORPUSCULAR HGB CONC 34.4 g/dl (32.0-36.5); MEAN CORPUSCULAR VOLUME 95.5 fl (80.0-96.0); MONO # 1.1 10^3/uL (0.0-0.8); MONO % 15.3 % (2.0-8.0); NEUTROPHILS % 58.1 % (36.0-66.0); PLATELET COUNT, AUTOMATED 337 10^3/uL (150-450); RED BLOOD COUNT 3.75 10^6/uL (4.30-6.10); WHITE BLOOD COUNT 6.9 10^3/uL (4.0-10.0)
[2023-07-30 08:48] LABS: ALKALINE PHOSPHATASE 124 IU/L (44-121); ALT/SGPT 14 IU/L (0-32); AST/SGOT 32 IU/L (0-40); BILIRUBIN,TOTAL 0.7 MG/DL (0.0-1.2); BLOOD UREA NITROGEN 14 MG/DL (8-27); CALCIUM LEVEL 9.5 MG/DL (8.7-10.3); CARBON DIOXIDE LEVEL 18 mmol/L (20-29); CHLORIDE LEVEL 90 mmol/L (96-106); CHOLESTEROL LEVEL 156 MG/DL (100-199); GLOMERULAR FILTRATION RATE > 60.0 (>59); HDL CHOLESTEROL 119 MG/DL (>39); LDL CHOLESTEROL 27.6 MG/DL (<100); NON-HDL-C 37 MG/DL; POTASSIUM SERUM 5.5 mmol/L (3.5-5.2); SODIUM LEVEL 126 mmol/L (134-144); TRIGLYCERIDES LEVEL 47 MG/DL (0-149)
[2023-07-30 08:49] LABS: ALBUMIN 4.8 G/DL (3.9-4.9); TOTAL PROTEIN 8.1 G/DL (6.0-8.5)
[2023-07-30 08:50] LABS: FREE T4 1.14 NG/DL (0.82-1.77)
[2023-07-30 08:51] LABS: GLUCOSE, FASTING 103 MG/DL (70-99)
== END ==
LOC: M SFHCADAM 10:48
PROVIDERS: ATTEND Family Medicine
DX: Z13.1 Encounter for screening for diabetes mellitus (principal); Z86.2 Personal history of diseases of the blood and blood-forming organs and certain disorders involving the immune mechanism; E78.00 Pure hypercholesterolemia, unspecified; I48.91 Unspecified atrial fibrillation; Z12.5 Encounter for screening for malignant neoplasm of prostate
CPT/HCPCS: 80053; 80061; 83036; 83735; 84439; 84443; 85025; G0103

== ENCOUNTER → 2023-07-30 | Outpatient (REF) | payer MEDICARE, MEDICAID ==
[2023-07-30 16:38] LABS: BLOOD UREA NITROGEN 17 MG/DL (9-23); CALCIUM LEVEL 8.7 MG/DL (8.3-10.6); CARBON DIOXIDE LEVEL 24 MMOL/L (20-31); CHLORIDE LEVEL 96 MMOL/L (98-107); CREATININE FOR GFR 1.14 MG/DL (0.70-1.30); GLOMERULAR FILTRATION RATE > 60.0 (>49); GLUCOSE, FASTING 93 MG/DL (74-106); POTASSIUM SERUM 4.9 MMOL/L (3.5-5.1); SODIUM LEVEL 125 MMOL/L (136-145)
== END ==
LOC: M SFHCADAM 13:46
PROVIDERS: ATTEND Physician Assistant Medical
DX: R63.0 Anorexia (principal); F17.210 Nicotine dependence, cigarettes, uncomplicated; F10.10 Alcohol abuse, uncomplicated

== ENCOUNTER → 2023-08-05 | Outpatient (CLI) | payer MEDICARE, MEDICAID | LOC: M RAD 13:20 | PROVIDERS: ATTEND Family Medicine | DX: I70.202 Unspecified atherosclerosis of native arteries of extremities, left leg (principal); Z98.890 Other specified postprocedural states; Z98.62 Peripheral vascular angioplasty status; I65.23 Occlusion and stenosis of bilateral carotid arteries ==

== ENCOUNTER → 2024-01-27 | Outpatient (REF) | payer MEDICARE, MEDICAID ==
[2024-01-27 13:35] LABS: OSMOLALITY SERUM 293 MOSM/KG (280-301)
[2024-01-27 13:40] LABS: HEMATOCRIT 39.9 % (42.0-52.0); HEMOGLOBIN 13.6 g/dl (13.5-17.5); MEAN CORPUSCULAR HEMOGLOBIN 34.6 pg (27.0-33.0); MEAN CORPUSCULAR HGB CONC 34.1 g/dl (32.0-36.5); MEAN CORPUSCULAR VOLUME 101.5 fl (80.0-96.0); PLATELET COUNT, AUTOMATED 334 10^3/uL (150-450); RED BLOOD COUNT 3.93 10^6/uL (4.30-6.10); WHITE BLOOD COUNT 12.6 10^3/uL (4.0-10.0)
[2024-01-27 13:41] LABS: ALBUMIN 3.6 G/DL (3.2-5.2); ALKALINE PHOSPHATASE 85 U/L (46-116); ALT/SGPT 23 U/L (7.0-40); AST/SGOT 34 U/L (<34); BILIRUBIN,TOTAL 0.4 MG/DL (0.3-1.2); BLOOD UREA NITROGEN 14 MG/DL (9-23); CALCIUM LEVEL 9.3 MG/DL (8.3-10.6); CARBON DIOXIDE LEVEL 28 MMOL/L (20-31); CHLORIDE LEVEL 100 MMOL/L (98-107); GLOMERULAR FILTRATION RATE > 60.0 (>49); GLUCOSE, FASTING 71 MG/DL (74-106); POTASSIUM SERUM 4.3 MMOL/L (3.5-5.1); SODIUM LEVEL 133 MMOL/L (136-145); TOTAL PROTEIN 7.2 G/DL (5.7-8.2)
[2024-01-27 14:31] LABS: HEMOGLOBIN A1c 4.5 % (4.0-6.0)
== END ==
LOC: M SFHCADAM 08:58
PROVIDERS: ATTEND Family Medicine
DX: E87.1 Hypo-osmolality and hyponatremia (principal); D63.1 Anemia in chronic kidney disease; I48.0 Paroxysmal atrial fibrillation; Z13.1 Encounter for screening for diabetes mellitus

== ENCOUNTER → 2024-04-29 | Outpatient (CLI) | payer MEDICARE, MEDICAID | LOC: M RAD 09:08 | PROVIDERS: ATTEND Family Medicine | DX: Z12.2 Encounter for screening for malignant neoplasm of respiratory organs (principal); F17.210 Nicotine dependence, cigarettes, uncomplicated; J98.4 Other disorders of lung; I25.10 Atherosclerotic heart disease of native coronary artery without angina pectoris; I70.0 Atherosclerosis of aorta ==

== ENCOUNTER 2024-06-29 10:27 | Day surgery (SDC) | payer MEDICARE, MEDICAID ==
[~2024-06-29] VITALS: Ht 180.3 cm; Wt 64.0 kg
[~2024-06-29 10:27] MED LIST changes: +ALBU8.5H INH; +LOSA100T46 PO; +NS 1,000 ML IV ONE
[2024-06-29] MEDS ORDERED: propofoL 200 MG/20 ML VIAL As Ordered ONE (11:53)
[2024-06-29] MEDS ORDERED: LIDOCAINE 2% 100MG/5ML SDV (FOR ANES.) As Ordered ONE (13:14)
[2024-06-29] MEDS ORDERED: dexmedeTOMIDine (4MCG/ML)200MCG/50ML BTL (PRECEDEX) As Ordered ONE (13:16)
[2024-06-29 14:13] VITALS: TEMP 98.1
[2024-06-29 14:24] VITALS: BP 177/84; O2SAT 99
== END 2024-06-29 14:35 | disposition home or self-care (01) ==
LOC: M OPP 10:27
PROVIDERS: ATTEND Internal Medicine Gastroenterology
DX: D12.4 Benign neoplasm of descending colon (principal); Z86.010 Personal history of colon polyps; D50.9 Iron deficiency anemia, unspecified; R12 Heartburn; K44.9 Diaphragmatic hernia without obstruction or gangrene; K29.70 Gastritis, unspecified, without bleeding; K21.00 Gastro-esophageal reflux disease with esophagitis, without bleeding; J44.9 Chronic obstructive pulmonary disease, unspecified; I10 Essential (primary) hypertension; F17.220 Nicotine dependence, chewing tobacco, uncomplicated; F10.10 Alcohol abuse, uncomplicated; Z88.5 Allergy status to narcotic agent; Z88.8 Allergy status to other drugs, medicaments and biological substances; Z79.01 Long term (current) use of anticoagulants

== ENCOUNTER → 2024-07-22 | Outpatient (CLI) | payer MEDICARE, MEDICAID ==
[~2024-07-22] MED LIST changes: -NS 1,000 ML IV ONE
[2024-07-22 13:49] LABS: HEMATOCRIT 37.3 % (42.0-52.0); HEMOGLOBIN 12.7 g/dl (13.5-17.5); MEAN CORPUSCULAR HEMOGLOBIN 32.9 pg (27.0-33.0); MEAN CORPUSCULAR VOLUME 96.6 fl (80.0-96.0); PLATELET COUNT, AUTOMATED 291 10^3/uL (150-450); RED BLOOD COUNT 3.86 10^6/uL (4.30-6.10); WHITE BLOOD COUNT 8.4 10^3/uL (4.0-10.0)
[2024-07-22 13:54] LABS: IRON (FE) 35 UG/DL (65-175); PERCENT SATURATION 11.5 % (19.7-50.0); TOTAL IRON BINDING CAPACITY 304 UG/DL (250-425)
[2024-07-22 14:02] LABS: ALBUMIN 3.6 G/DL (3.2-5.2); ALKALINE PHOSPHATASE 103 U/L (46-116); ALT/SGPT 17 U/L (7.0-40); AST/SGOT 24 U/L (<34); BILIRUBIN,TOTAL 0.5 MG/DL (0.3-1.2); BLOOD UREA NITROGEN 12 MG/DL (9-23); CALCIUM LEVEL 8.9 MG/DL (8.3-10.6); CARBON DIOXIDE LEVEL 27 MMOL/L (20-31); CHLORIDE LEVEL 104 MMOL/L (98-107); CHOLESTEROL LEVEL 123 MG/DL (<200); CHOLESTEROL RISK RATIO 1.66 (<5); CREATININE FOR GFR 1.15 MG/DL (0.70-1.30); FERRITIN 96.4 NG/ML (10.5-307.3); GLOMERULAR FILTRATION RATE > 60.0 (>49); GLUCOSE, FASTING 114 MG/DL (74-106); LDL CHOLESTEROL 40.8 MG/DL (<100); PSA SCREENING 0.51 NG/ML (< 4.00); SODIUM LEVEL 134 MMOL/L (136-145); TOTAL PROTEIN 7.4 G/DL (5.7-8.2); TRIGLYCERIDES LEVEL 41 MG/DL (<150)
[2024-07-22 14:16] LABS: HEMOGLOBIN A1c 4.8 % (4.0-6.0)
== END ==
LOC: M PLALAB 10:37
PROVIDERS: ATTEND Family Medicine
DX: I73.9 Peripheral vascular disease, unspecified (principal); E78.00 Pure hypercholesterolemia, unspecified; D63.1 Anemia in chronic kidney disease; B18.2 Chronic viral hepatitis C; Z12.5 Encounter for screening for malignant neoplasm of prostate; Z13.1 Encounter for screening for diabetes mellitus
CPT/HCPCS: 36415; 80053; 80061; 82728; 83036; 83550; 85027; G0103

== ENCOUNTER → 2024-08-18 | Outpatient (CLI) | payer MEDICARE, MEDICAID | LOC: M RAD 11:07 | PROVIDERS: ATTEND Family Medicine | DX: I73.9 Peripheral vascular disease, unspecified (principal) ==

== ENCOUNTER → 2024-08-26 | Outpatient (CLI) | payer MEDICARE, MEDICAID ==
[~2024-08-26] MED LIST changes: +ISOVUE-370 76% 100ML VIAL As Ordered ONE
== END ==
LOC: M RAD 16:17
PROVIDERS: ATTEND Family Medicine
DX: I72.4 Aneurysm of artery of lower extremity (principal); I70.1 Atherosclerosis of renal artery; Z95.820 Peripheral vascular angioplasty status with implants and grafts; I70.203 Unspecified atherosclerosis of native arteries of extremities, bilateral legs
CPT/HCPCS: 73706; Q9967

== ENCOUNTER → 2025-01-13 | Outpatient (REF) | payer MEDICARE, MEDICAID ==
[~2025-01-13] MED LIST changes: -ISOVUE-370 76% 100ML VIAL As Ordered ONE
[2025-01-13 17:02] LABS: ALBUMIN 3.7 G/DL (3.2-5.2); BILIRUBIN,TOTAL 0.8 MG/DL (0.3-1.2); CALCIUM LEVEL 8.8 MG/DL (8.3-10.6); CREATININE FOR GFR 1.03 MG/DL (0.70-1.30); GLOMERULAR FILTRATION RATE 80.6 (>49); POTASSIUM SERUM 4.7 MMOL/L (3.5-5.1); TOTAL PROTEIN 7.7 G/DL (5.7-8.2)
[2025-01-13 17:04] LABS: HEMATOCRIT 38.5 % (42.0-52.0); MEAN CORPUSCULAR HEMOGLOBIN 32.7 pg (27.0-33.0); MEAN CORPUSCULAR HGB CONC 33.8 g/dl (32.0-36.5); MEAN CORPUSCULAR VOLUME 96.7 fl (80.0-96.0); PLATELET COUNT, AUTOMATED 398 10^3/uL (150-450); RED BLOOD COUNT 3.98 10^6/uL (4.30-6.10); WHITE BLOOD COUNT 8.1 10^3/uL (4.0-10.0)
[2025-01-13 17:08] LABS: INR 1.08; PARTIAL THROMBOPLASTIN TIME 32.9 SECONDS (24.8-34.2); PROTHROMBIN TIME 14.3 SECONDS (12.5-14.5)
== END ==
LOC: M SFHCADAM 14:00
PROVIDERS: ATTEND Family Medicine
DX: Z01.818 Encounter for other preprocedural examination (principal); Z79.01 Long term (current) use of anticoagulants

== ENCOUNTER 2025-06-30 14:48 | Emergency (ER) | payer MEDICARE, MEDICAID ==
[~2025-06-30] VITALS: Ht 182.9 cm; Wt 65.9 kg
[2025-06-30 15:43] LABS: BASO # 0.1 10^3/uL (0.0-0.2); BASO % 1.0 % (0.0-1.0); EOS # 0.5 10^3/uL (0.0-0.5); EOS % 5.1 % (0.0-3.0); LYMPH # 1.6 10^3/uL (1.5-5.0); LYMPH % 17.2 % (24.0-44.0); MONO # 1.0 10^3/uL (0.0-0.8); MONO % 10.7 % (2.0-8.0); NEUTROPHILS # 6.2 10^3/uL (1.5-8.5); NEUTROPHILS % 65.7 % (36.0-66.0); PLATELET COUNT, AUTOMATED 324 10^3/uL (150-450)
[2025-06-30 15:50] LABS: ERYTHROCYTE SEDIMENTATION RATE 34 mm/hr (0-20)
[2025-06-30 15:52] LABS: C REACTIVE PROTEIN QUANTITATIV 0.54 MG/DL (<1.0); CALCIUM LEVEL 8.8 MG/DL (8.3-10.6); CARBON DIOXIDE LEVEL 26.0 MMOL/L (20-31); CHLORIDE LEVEL 101.0 MMOL/L (98-107); CREATININE FOR GFR 1.21 MG/DL (0.70-1.30); GLOMERULAR FILTRATION RATE 66.5 (>49); POTASSIUM SERUM 3.3 MMOL/L (3.5-5.1); SODIUM LEVEL 134.0 MMOL/L (136-145)
[2025-06-30] MEDS: hydrALAZINE 20 MG/ML 1 ML VIAL IV STA (17:34)
[2025-06-30] MEDS ORDERED: ISOVUE-370 76% 100 ML VIAL As Ordered ONE (18:04)
[2025-06-30] MEDS: amLODIPine 5 MG TAB PO ONE (18:14)
[2025-06-30 18:42] VITALS: BP 218/100
[2025-06-30] MEDS: hydrALAZINE 20 MG/ML 1 ML VIAL IV ONE (18:42)
[2025-06-30] MEDS ORDERED: AMLO1TAB24 PO (18:59)
[2025-06-30] MEDS ORDERED: NAPR-837 PO (18:59)
[2025-06-30] MEDS ORDERED: PRED20TA PO (19:15)
[2025-06-30 19:27] VITALS: BP 156/79; TEMP 97.3; O2SAT 97
== END 2025-06-30 19:35 | disposition home or self-care (01) ==
LOC: M ED 14:48
DX: M70.21 Olecranon bursitis, right elbow (principal); I15.0 Renovascular hypertension; I70.1 Atherosclerosis of renal artery; J44.9 Chronic obstructive pulmonary disease, unspecified; R42 Dizziness and giddiness; F41.9 Anxiety disorder, unspecified; F32.A Depression, unspecified; Z86.19 Personal history of other infectious and parasitic diseases; F17.200 Nicotine dependence, unspecified, uncomplicated; I73.9 Peripheral vascular disease, unspecified; Z79.82 Long term (current) use of aspirin; Z79.01 Long term (current) use of anticoagulants; Z79.899 Other long term (current) drug therapy; Z88.5 Allergy status to narcotic agent; Z88.8 Allergy status to other drugs, medicaments and biological substances
CPT/HCPCS: 73080; 74175; 76882; 80048; 83605; 84145; 85025; 85652; 86140; 87040; 87070; 87077; 87205; 96374; 96376; 99284; G0463; J0360; Q9967

== ENCOUNTER → 2025-07-21 | Outpatient (REF) | payer MEDICARE, MEDICAID ==
[~2025-07-21] MED LIST changes: +AMLO1TAB24 PO; +NAPR-837 PO; +PRED20TA PO
[2025-07-21 17:04] LABS: CRYSTALS, BODY FLUID NONE SEEN (NONE SEEN); SOURCE, BODY FLUID CRYSTALS RT ELBOW
[2025-07-21 17:32] LABS: SOURCE, BODY FLUID RT ELBOW
== END ==
LOC: M LAB REF 16:32
PROVIDERS: ATTEND Orthopaedic Surgery
DX: M70.21 Olecranon bursitis, right elbow (principal)

== ENCOUNTER → 2025-08-04 | Outpatient (CLI) | payer MEDICARE, MEDICAID ==
[2025-08-04 12:57] LABS: BASO # 0.1 10^3/uL (0.0-0.2); BASO % 1.5 % (0.0-1.0); EOS # 0.4 10^3/uL (0.0-0.5); EOS % 4.0 % (0.0-3.0); LYMPH # 2.3 10^3/uL (1.5-5.0); LYMPH % 24.3 % (24.0-44.0); MONO # 1.0 10^3/uL (0.0-0.8); MONO % 10.6 % (2.0-8.0); NEUTROPHILS # 5.5 10^3/uL (1.5-8.5); NEUTROPHILS % 59.2 % (36.0-66.0); PLATELET COUNT, AUTOMATED 384 10^3/uL (150-450)
[2025-08-04 13:24] LABS: INR 1.04
[2025-08-04 13:26] LABS: ALT/SGPT 15 U/L (7.0-40); AST/SGOT 26 U/L (<34); C REACTIVE PROTEIN QUANTITATIV < 0.50 MG/DL (<1.0); CALCIUM LEVEL 8.8 MG/DL (8.3-10.6); CARBON DIOXIDE LEVEL 27 MMOL/L (20-31); CHLORIDE LEVEL 102 MMOL/L (98-107); CREATININE FOR GFR 1.36 MG/DL (0.70-1.30); GLOMERULAR FILTRATION RATE 57.8 (>49); POTASSIUM SERUM 4.1 MMOL/L (3.5-5.1); SODIUM LEVEL 136 MMOL/L (136-145)
== END ==
LOC: M PLALAB 11:29
PROVIDERS: ATTEND Orthopaedic Surgery
DX: M70.21 Olecranon bursitis, right elbow (principal); Z12.2 Encounter for screening for malignant neoplasm of respiratory organs; F17.210 Nicotine dependence, cigarettes, uncomplicated

== ENCOUNTER → 2025-08-04 | Outpatient (CLI) | payer MEDICARE, MEDICAID | LOC: M RAD 08:26 | PROVIDERS: ATTEND Family Medicine | DX: Z12.2 Encounter for screening for malignant neoplasm of respiratory organs (principal); F17.210 Nicotine dependence, cigarettes, uncomplicated; Z79.01 Long term (current) use of anticoagulants; M70.21 Olecranon bursitis, right elbow ==

== ENCOUNTER 2025-08-10 10:40 | Day surgery (SDC) | payer MEDICARE, MEDICAID ==
[~2025-08-10] VITALS: Ht 180.3 cm; Wt 63.9 kg
[2025-08-10] MEDS: LR 1,000 ML IV SCH (10:55)
[2025-08-10] MEDS: MIDAZOLAM INJ 2 MG/2 ML VIAL IV PRN (11:53)
[2025-08-10] MEDS: ROPIvacaine 0.5% 30ML VIAL PN ONE (11:58)
[2025-08-10] MEDS: EPINEPHrine INJ 1 MG/ML 1ML AMP PN ONE (11:58)
[2025-08-10] MEDS: LIDOCAINE 1% SDV 5 ML VIAL PN ONE (11:58)
[2025-08-10] MEDS: dexAMETHasone 10 MG/1 ML VIAL PRES.FREE PN ONE (11:58)
[2025-08-10] MEDS ORDERED: MIDAZOLAM INJ 2 MG/2 ML VIAL As Ordered ONE (12:01)
[2025-08-10] MEDS ORDERED: ONDANSETRON 4MG/2ML VIAL As Ordered ONE (12:02)
[2025-08-10] MEDS ORDERED: LIDOCAINE 2% 100 MG/5 ML SDV (FOR ANES.) As Ordered ONE (12:02)
[2025-08-10] MEDS ORDERED: dexAMETHasone 4 MG/ML 1 ML VIAL As Ordered ONE (12:02)
[2025-08-10] MEDS ORDERED: dexmedeTOMIDine (4 MCG/ML) 200 MCG/50 ML BTL As Ordered ONE (12:02)
[2025-08-10] MEDS ORDERED: ACETAMINOPHEN 1000MG/100ML IV BAG As Ordered ONE (12:05)
[2025-08-10] MEDS: ceFAZolin SOD 2 GM IV ONCE IV ONE (12:28)
[2025-08-10 13:15] VITALS: BP 111/64; TEMP 97.3; O2SAT 98
[2025-08-10] MEDS ORDERED: PERC5TAB12 PO (13:17)
== END 2025-08-10 13:40 | disposition home or self-care (01) ==
LOC: M SDC 10:40
PROVIDERS: ATTEND Orthopaedic Surgery
DX: M70.21 Olecranon bursitis, right elbow (principal); I48.0 Paroxysmal atrial fibrillation; I10 Essential (primary) hypertension; J44.9 Chronic obstructive pulmonary disease, unspecified; F17.210 Nicotine dependence, cigarettes, uncomplicated; E78.00 Pure hypercholesterolemia, unspecified; K21.9 Gastro-esophageal reflux disease without esophagitis; Z79.899 Other long term (current) drug therapy; Z79.01 Long term (current) use of anticoagulants; Z79.82 Long term (current) use of aspirin; Z88.5 Allergy status to narcotic agent; Z88.8 Allergy status to other drugs, medicaments and biological substances
CPT/HCPCS: 24105; 88302; J0131; J0166; J0688; J1100; J2250; J2405; J2795; J3010